=== PATIENT | male | born 2005 | race Caucasian/White ===

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

== ENCOUNTER → 2023-04-27 | Outpatient (CLI) | payer OTHER ==
[~2023-04-27] MED LIST changes: +PROM25TA14 PO
[2023-04-27 13:01] LABS: BASOPHILS % (AUTO) 1 % (0-10); EOSINOPHILS # (AUTO) 0.1 10^3/uL (0.0-0.3); EOSINOPHILS % (AUTO) 1 % (0-10); HEMATOCRIT 42 % (40-54); HEMOGLOBIN 14.6 g/dL (13.3-17.7); LYMPHOCYTES # (AUTO) 1.9 10^3/uL (1.0-4.0); LYMPHOCYTES % (AUTO) 27 % (12-44); MEAN CORPUSCULAR HEMOGLOBIN 30 pg (25-34); MEAN CORPUSCULAR HGB CONC 35 g/dL (32-36); MEAN CORPUSCULAR VOLUME 86 fL (80-99); MEAN PLATELET VOLUME 9.8 fL (9.0-12.2); MONOCYTES # (AUTO) 0.5 10^3/uL (0.0-1.0); MONOCYTES % (AUTO) 7 % (0-12); NEUTROPHILS # (AUTO) 4.7 10^3/uL (1.8-7.8); NEUTROPHILS % (AUTO) 64 % (42-75); PLATELET COUNT 323 10^3/uL (130-400); WHITE BLOOD COUNT 7.2 10^3/uL (4.3-11.0)
--- NOTE | 2023-04-27 13:02 | Diagnostic Imaging Report ---
PROCEDURE: CT head without contrast. TECHNIQUE: Multiple contiguous axial images were obtained through the brain without the use of intravenous contrast. Auto Exposure Controls were utilized during the CT exam to meet ALARA standards for radiation dose reduction. INDICATION: Acute intractable headache. COMPARISON: 04/27/2021 CT HEAD: CT images of the head were obtained. FINDINGS: Ventricles and sulci are within normal limits for size. There is no intracranial hemorrhage identified. There is no abnormal mass effect or shift of midline structures. IMPRESSION: Unremarkable CT of the head. Dictated by: Dictated on workstation # [id number]
[2023-04-27 13:36] LABS: POTASSIUM 4.1 MMOL/L (3.6-5.0); SODIUM 136 MMOL/L (135-145)
[2023-04-27 13:38] LABS: ALKALINE PHOSPHATASE 67 U/L (40-136); BILIRUBIN,TOTAL 1.4 MG/DL (0.1-1.0); BUN/CREATININE RATIO 18; CARBON DIOXIDE 23 MMOL/L (21-32); CHLORIDE 100 MMOL/L (98-107); CREATININE SERUM 1.02 MG/DL (0.60-1.30); GFR ESTIMATED 109; GLUCOSE 93 MG/DL (70-105)
[2023-04-27 13:39] LABS: ALANINE AMINOTRANSFERASE 50 U/L (0-55); TOTAL PROTEIN 7.4 GM/DL (6.4-8.2)
== END ==
LOC: LAB FS 12:30
PROVIDERS: ATTEND Physician Assistant
DX: R51.9 Headache, unspecified (principal); R53.83 Other fatigue; R63.4 Abnormal weight loss
CPT/HCPCS: 36415; 70450; 80053; 84443; 85025; 85652; 86141